=== PATIENT | male | born 1955 | race Asian ===

== ENCOUNTER 2024-02-15 17:59 | Inpatient (IN) | payer MEDICARE, OTHER ==
[~2024-02-15] VITALS: Ht 172.7 cm; Wt 63.5 kg
[2024-02-15 19:32] LABS: HEMATOCRIT 27.1 % (36.7-47.1); RED CELL DISTRIBUTION WIDTH 18.3 % (12.1-16.2)
[2024-02-15 19:36] LABS: CALCIUM 8.8 mg/dL (8.5-10.1); CREATININE 1.2 mg/dL (0.6-1.3)
[2024-02-15 19:48] LABS: BASOPHILS # (AUTO) 0.1 K/UL (0.0-0.2); BASOPHILS % (AUTO) 1.3 % (0.0-2.0); EOSINOPHILS # (AUTO) 0.1 K/uL (0.0-0.7); EOSINOPHILS % (AUTO) 0.8 % (0.0-7.0); HEMOGLOBIN 8.4 g/dL (12.5-16.3); LYMPHOCYTES # (AUTO) 2.7 K/uL (0.8-4.8); LYMPHOCYTES % (AUTO) 25.1 % (20.5-51.5); MEAN CORPUSCULAR HEMOGLOBIN 20.5 uug (23.8-33.4); MEAN CORPUSCULAR HGB CONC 31 g/dL (32.5-36.3); MEAN CORPUSCULAR VOLUME 66.2 fL (73.0-96.2); MONOCYTES # (AUTO) 0.6 K/uL (0.1-1.30); MONOCYTES % (AUTO) 5.9 % (0.0-11.0); NEUTROPHILS # (AUTO) 7.1 K/uL (1.8-8.9); NEUTROPHILS % (AUTO) 66.9 % (38.5-71.5); PLATELET COUNT (AUTO) 356 K/uL (152-348); RED BLOOD CELL COUNT(AUTO) 4.09 MIL/uL (4.06-5.63); WHITE BLOOD COUNT (AUTO) 10.6 K/uL (3.6-10.2)
[2024-02-15 19:50] LABS: DIFFERENTIAL COMMENT 1
[2024-02-15 20:02] LABS: ALBUMIN 3.4 g/dL (3.4-5.0); BILIRUBIN,TOTAL 0.3 mg/dL (0.2-1.0)
[2024-02-15 20:53] LABS: ANISOCYTOSIS 2+; LYMPHOCYTES % (MANUAL) 7 % (20-40); MONOCYTES % (MANUAL) 4 % (2-10); NEUTROPHILS % (MANUAL) 89 % (42-75); PLATELET ESTIMATE ADEQUATE
[2024-02-15 20:54] LABS: HYPOCHROMASIA 2+
[2024-02-15 22:45] VITALS: BP 151/90; TEMP 98.2; O2SAT 99
[2024-02-15] MEDS ORDERED: ONDANSETRON 4 MG/2 ML VIAL IV PRN (23:15)
[2024-02-15] MEDS ORDERED: ACETAMINOPHEN 325 MG TABLET PO PRN (23:15)
[2024-02-15] MEDS ORDERED: REMEDY ESSENTIAL ZINC PASTE 113 GM TP PRN (23:15)
[2024-02-15] MEDS ORDERED: TEMAZEPAM 15 MG CAPSULE PO PRN (23:15)
[2024-02-15] MEDS: IV NS 1000 ML 1,000 ML IV PRN (23:50)
[2024-02-16 00:31] VITALS: BP 158/90; TEMP 98.9; O2SAT 99
[2024-02-16 04:00] VITALS: BP 151/81; TEMP 98.2; O2SAT 99
[2024-02-16] MEDS: PANTOPRAZOLE SODIUM 40 MG TABLET.DR PO SCH (06:12)
[2024-02-16 06:46] LABS: HEMATOCRIT 25.8 % (36.7-47.1); HEMOGLOBIN 8.1 g/dL (12.5-16.3); MEAN CORPUSCULAR HEMOGLOBIN 20.9 uug (23.8-33.4); MEAN CORPUSCULAR HGB CONC 31 g/dL (32.5-36.3); MEAN CORPUSCULAR VOLUME 66.4 fL (73.0-96.2); PLATELET COUNT (AUTO) 348 K/uL (152-348); RED BLOOD CELL COUNT(AUTO) 3.89 MIL/uL (4.06-5.63); RED CELL DISTRIBUTION WIDTH 18.1 % (12.1-16.2); WHITE BLOOD COUNT (AUTO) 8.8 K/uL (3.6-10.2)
[2024-02-16 07:00] LABS: CALCIUM 8.6 mg/dL (8.5-10.1); MAGNESIUM 1.9 mg/dL (1.8-2.4); PHOSPHOROUS 2.8 mg/dL (2.5-4.9); POTASSIUM 4.3 mmol/L (3.5-5.1)
[2024-02-16 07:01] LABS: DIFFERENTIAL COMMENT 1
[2024-02-16 07:12] LABS: THYROID STIMULATING HORMONE 0.932 mIU/mL (0.358-3.740)
[2024-02-16 07:32] VITALS: BP 155/88; TEMP 98.2; O2SAT 99
[2024-02-16] MEDS: HYDROCODONE/APAP 5-325MG TABLET PO PRN (09:27)
[2024-02-16] MEDS: MAGNESIUM HYDROXIDE 30 ML LIQUID UDC PO PRN (10:11)
[2024-02-16 10:58] VITALS: BP 171/58; TEMP 98.2; O2SAT 96
[2024-02-16 11:52] LABS: *BILIRUBIN,URIN NEGATIVE (NEGATIVE); *BLOOD, URINE NEGATIVE (NEGATIVE); *CLARITY,URINE CLEAR (CLEAR); *COLOR,URINE YELLOW (YELLOW); *KETONES,URINE 2+ (NEGATIVE); *PROTEIN,URINE TRACE (NEGATIVE); *UROBILINOGEN,URINE 0.2 E.U./dl (NORMAL); LEUKOCYTE ESTERASE ,URINE NEGATIVE (NEGATIVE); NITRITE, URINE NEGATIVE (NEGATIVE); PH,URINE 5.5 (5.0-8.0); UGLUCOSE NEGATIVE (NEGATIVE)
[2024-02-16 13:07] LABS: BASOPHILS % (AUTO) 1.4 % (0.0-2.0); LYMPHOCYTES # (AUTO) 12.5 K/uL (0.8-4.8); MONOCYTES # (AUTO) 0.9 K/uL (0.1-1.30); NEUTROPHILS # (AUTO) 6.4 K/uL (1.8-8.9)
[2024-02-16 13:08] LABS: BASOPHILS # (AUTO) 0.1 K/UL (0.0-0.2)
[2024-02-16 13:09] LABS: ANISOCYTOSIS 2+; BAND % (MANUAL) 2 % (0-10); HYPOCHROMASIA 2+; LYMPHOCYTES % (MANUAL) 18 % (20-40); MONOCYTES % (MANUAL) 6 % (2-10); NEUTROPHILS % (MANUAL) 72 % (42-75); PLATELET ESTIMATE ADEQUATE; REACTIVE LYMPHOCYTES 2 % (0-0)
[2024-02-16 13:16] LABS: NEUTROPHILS % (AUTO) 74.1 % (38.5-71.5)
[2024-02-16 13:17] LABS: LYMPHOCYTES % (AUTO) 12.5 % (20.5-51.5)
[2024-02-16 13:53] LABS: BACTERIA,URINE FEW /HPF (NONE SEEN); WBC,URINE 0-3 /HPF (0-3)
[2024-02-16 13:54] LABS: SQUAMOUS EPITHELIAL CELL,UR FEW /HPF (NONE SEEN); URIC ACID CRYSTALS,URINE PRESENT /HPF (NONE SEEN)
[2024-02-16 15:02] VITALS: BP 157/83; TEMP 98.4; O2SAT 96
[2024-02-16] MEDS ORDERED: GABA300C PO (15:49)
[2024-02-16] MEDS ORDERED: ERGO50CA PO (15:49)
[2024-02-16] MEDS ORDERED: ATOR10TA PO (15:49)
[2024-02-16] MEDS ORDERED: LINA5TAB PO (15:49)
[2024-02-16] MEDS ORDERED: DOCU-141 PO (15:49)
[2024-02-16] MEDS ORDERED: METO-357 PO (15:49)
[2024-02-16] MEDS ORDERED: LOSA100T31 PO (15:49)
[2024-02-16] MEDS ORDERED: HOME MED MISCELLANEOUS XX SCH (16:00)
[2024-02-16] MEDS: DOCUSATE SODIUM 100 MG CAPSULE PO PRN (16:24)
[2024-02-16] MEDS: GABAPENTIN 300 MG CAPSULE PO SCH (16:24)
[2024-02-16] MEDS: METOPROLOL SUCCINATE XL 50 MG TAB.SR.24H PO SCH (16:24)
[2024-02-16] MEDS: CHOLECALCIFEROL 1,000 UNIT TABLET PO SCH (16:24)
[2024-02-16] MEDS: LINAGLIPTIN 5 MG TABLET PO SCH (16:24)
[2024-02-16 19:30] VITALS: BP 163/103; TEMP 97.9; O2SAT 98
[2024-02-16] MEDS: ATORVASTATIN 10 MG TABLET PO SCH (21:01)
[2024-02-16] MEDS: CLONIDINE HCL 0.1 MG TABLET PO PRN (21:01)
[2024-02-17] VITALS: BP 155/83; TEMP 97.1; O2SAT 100
[2024-02-17 04:00] VITALS: BP 123/78; TEMP 97.1; O2SAT 97
[2024-02-17 07:49] VITALS: BP 143/72; TEMP 97.6; O2SAT 100
[2024-02-17] MEDS: LOSARTAN POTASSIUM 50 MG TABLET PO SCH (08:51)
[2024-02-17 11:19] VITALS: BP 130/77; TEMP 98.4; O2SAT 100
[2024-02-17 15:31] VITALS: BP 126/58; TEMP 97.6; O2SAT 100
[2024-02-17 19:30] VITALS: BP 135/69; TEMP 98; O2SAT 98
[2024-02-18 04:34] VITALS: BP 147/79; TEMP 98.7; O2SAT 99
[2024-02-18 06:00] VITALS: BP 134/74; TEMP 98.7; O2SAT 99
[2024-02-18] MEDS: DOCUSATE SODIUM 100 MG CAPSULE PO SCH (10:49)
[2024-02-18 11:09] VITALS: BP 158/87; TEMP 98.1; O2SAT 96
[2024-02-18 15:17] VITALS: BP 136/74; TEMP 98.3; O2SAT 97
== END 2024-02-18 16:15 | DRG 641 ==
LOC: ER 17:59 → TELE3 22:35 → MEDSURG3 02-17 10:10
PROVIDERS: ADMIT Nurse Practitioner Acute Care; ATTEND Nurse Practitioner Acute Care
DX: E86.0 Dehydration (principal); R65.10 Systemic inflammatory response syndrome (SIRS) of non-infectious origin without acute organ dysfunction; M54.17 Radiculopathy, lumbosacral region; R26.89 Other abnormalities of gait and mobility; N18.9 Chronic kidney disease, unspecified; K59.00 Constipation, unspecified; E78.5 Hyperlipidemia, unspecified; E11.42 Type 2 diabetes mellitus with diabetic polyneuropathy; E11.22 Type 2 diabetes mellitus with diabetic chronic kidney disease; G89.29 Other chronic pain; M54.42 Lumbago with sciatica, left side; M54.41 Lumbago with sciatica, right side; Z74.01 Bed confinement status; D63.8 Anemia in other chronic diseases classified elsewhere
CPT/HCPCS: 36415; 70030-TC; 70450; 71045; 74018; 83735; 84100; 84443; 84484; 85025; 93307; 93880; A4663; G0378; J7040

== ENCOUNTER 2024-02-18 17:09 | Inpatient (IN) | payer MEDICARE, OTHER ==
[~2024-02-18] VITALS: Ht 172.7 cm; Wt 63.5 kg
[~2024-02-18 17:09] MED LIST: ATOR10TA PO; DOCU-141 PO; ERGO50CA PO; GABA300C PO; LINA5TAB PO; LOSA100T31 PO; METO-357 PO
[2024-02-18 17:30] VITALS: BP 156/87; TEMP 97.9; O2SAT 98
[2024-02-18] MEDS ORDERED: DOCUSATE SODIUM 100 MG CAPSULE PO PRN ×2 (19:30→21:00)
[2024-02-18] MEDS ORDERED: REMEDY ESSENTIAL ZINC PASTE 113 GM TOP PRN (19:30)
[2024-02-18] MEDS ORDERED: TEMAZEPAM 15 MG CAPSULE PO PRN (19:30)
[2024-02-18] MEDS ORDERED: CLONIDINE HCL 0.1 MG TABLET PO PRN (19:30)
[2024-02-18] MEDS ORDERED: ACETAMINOPHEN 325 MG TABLET PO PRN (19:30)
[2024-02-18 20:00] VITALS: BP 154/77; TEMP 97.7; O2SAT 96
[2024-02-18] MEDS: ATORVASTATIN 10 MG TABLET PO SCH ×2 (21:00→21:10)
[2024-02-18] MEDS ORDERED: DEXTROSE 50% 50 ML DISP.SYRIN IV PRN (21:00)
[2024-02-18] MEDS ORDERED: HOME MED MISCELLANEOUS XX SCH (21:00)
[2024-02-18] MEDS: DOCUSATE SODIUM 100 MG/10 ML LIQUID UDC PO SCH (21:09)
[2024-02-18] MEDS: BLOOD SUGAR DIAGNOSTIC 1 EACH STRIP VI SCH (21:13)
[2024-02-19 06:00] VITALS: BP 149/77; TEMP 98.1; O2SAT 98
[2024-02-19] MEDS: PANTOPRAZOLE SODIUM 40 MG TABLET.DR PO SCH (06:14)
[2024-02-19] MEDS ORDERED: METOPROLOL SUCCINATE XL 50 MG TAB.SR.24H PO SCH (09:00)
[2024-02-19] MEDS ORDERED: LOSARTAN POTASSIUM 50 MG TABLET PO SCH (09:00)
[2024-02-19] MEDS ORDERED: GABAPENTIN 300 MG CAPSULE PO SCH (09:00)
[2024-02-19] MEDS ORDERED: LINAGLIPTIN 5 MG TABLET PO SCH (09:00)
[2024-02-19] MEDS: CHOLECALCIFEROL 1,000 UNIT TABLET PO SCH (09:40)
[2024-02-19] MEDS: GABAPENTIN 300 MG CAPSULE PO SCH (09:40)
[2024-02-19] MEDS: LOSARTAN POTASSIUM 50 MG TABLET PO SCH (09:41)
[2024-02-19] MEDS: LINAGLIPTIN 5 MG TABLET PO SCH (09:42)
[2024-02-19] MEDS: METOPROLOL SUCCINATE XL 50 MG TAB.SR.24H PO SCH (09:42)
[2024-02-19] MEDS: HYDROCODONE/APAP 5-325MG TABLET PO PRN (11:19)
[2024-02-19] MEDS: DOCUSATE SODIUM 100 MG CAPSULE PO SCH (13:33)
[2024-02-19 16:06] VITALS: BP 137/79; TEMP 98.3; O2SAT 97
[2024-02-19] MEDS: INSULIN REGULAR, HUMAN 1000 UNIT/10 ML VIAL SQ PRN (21:06)
[2024-02-19 21:13] VITALS: BP 137/72; TEMP 98.2; O2SAT 91
[2024-02-20 15:03] VITALS: BP 115/68; TEMP 98.2; O2SAT 98
[2024-02-20 20:19] VITALS: BP 128/73; TEMP 98.1; O2SAT 98
[2024-02-21 06:14] VITALS: BP 134/71; TEMP 98; O2SAT 96
[2024-02-21] MEDS: GLUCERNA SHAKE 237 ML CAN PO SCH (08:26)
[2024-02-21 15:06] VITALS: TEMP 98.6
[2024-02-21 19:00] VITALS: BP 111/67; TEMP 98.6; O2SAT 97
[2024-02-22 08:40] VITALS: BP 155/85; TEMP 98.5; O2SAT 96
[2024-02-22 14:46] VITALS: BP 115/62; TEMP 98; O2SAT 20
[2024-02-22 20:51] VITALS: BP 137/71; TEMP 98; O2SAT 97
[2024-02-23 06:32] VITALS: BP 110/67; TEMP 98.7; O2SAT 97
[2024-02-23 07:26] LABS: BASOPHILS # (AUTO) 0.1 K/UL (0.0-0.2); EOSINOPHILS # (AUTO) 0.1 K/uL (0.0-0.7); EOSINOPHILS % (AUTO) 1.5 % (0.0-7.0); HEMATOCRIT 23.3 % (36.7-47.1); LYMPHOCYTES # (AUTO) 0.7 K/uL (0.8-4.8); LYMPHOCYTES % (AUTO) 7.9 % (20.5-51.5); MEAN CORPUSCULAR HEMOGLOBIN 20.4 uug (23.8-33.4); MEAN CORPUSCULAR HGB CONC 32 g/dL (32.5-36.3); MEAN CORPUSCULAR VOLUME 64.4 fL (73.0-96.2); MONOCYTES # (AUTO) 0.9 K/uL (0.1-1.30); MONOCYTES % (AUTO) 10.7 % (0.0-11.0); NEUTROPHILS # (AUTO) 6.7 K/uL (1.8-8.9); NEUTROPHILS % (AUTO) 78.9 % (38.5-71.5); PLATELET COUNT (AUTO) 308 K/uL (152-348); RED BLOOD CELL COUNT(AUTO) 3.61 MIL/uL (4.06-5.63); RED CELL DISTRIBUTION WIDTH 18.4 % (12.1-16.2); WHITE BLOOD COUNT (AUTO) 8.4 K/uL (3.6-10.2)
[2024-02-23 07:31] LABS: DIFFERENTIAL COMMENT 1; HEMOGLOBIN 7.4 g/dL (12.5-16.3)
[2024-02-23 07:57] LABS: CALCIUM 8.3 mg/dL (8.5-10.1); CREATININE 1.2 mg/dL (0.6-1.3); MAGNESIUM 2.2 mg/dL (1.8-2.4); PHOSPHOROUS 3.3 mg/dL (2.5-4.9); POTASSIUM 4.4 mmol/L (3.5-5.1)
[2024-02-23 16:01] VITALS: BP 123/61; TEMP 98.1; O2SAT 98
[2024-02-23 20:07] VITALS: BP 115/61; TEMP 98.9; O2SAT 98
[2024-02-24 06:42] VITALS: BP 127/69; TEMP 98.4; O2SAT 97
[2024-02-24 09:29] LABS: CALCIUM 8.6 mg/dL (8.5-10.1); CREATININE 1.3 mg/dL (0.6-1.3); MAGNESIUM 2.2 mg/dL (1.8-2.4); PHOSPHOROUS 3.5 mg/dL (2.5-4.9); POTASSIUM 4.9 mmol/L (3.5-5.1)
[2024-02-24 09:40] LABS: BASOPHILS # (AUTO) 0.2 K/UL (0.0-0.2); BASOPHILS % (AUTO) 1.5 % (0.0-2.0); DIFFERENTIAL COMMENT 0; EOSINOPHILS # (AUTO) 0.2 K/uL (0.0-0.7); EOSINOPHILS % (AUTO) 1.8 % (0.0-7.0); HEMATOCRIT 25.9 % (36.7-47.1); HEMOGLOBIN 8.1 g/dL (12.5-16.3); LYMPHOCYTES # (AUTO) 0.8 K/uL (0.8-4.8); LYMPHOCYTES % (AUTO) 7.1 % (20.5-51.5); MEAN CORPUSCULAR HEMOGLOBIN 20.1 uug (23.8-33.4); MEAN CORPUSCULAR HGB CONC 31 g/dL (32.5-36.3); MEAN CORPUSCULAR VOLUME 64.2 fL (73.0-96.2); MONOCYTES # (AUTO) 2.5 K/uL (0.1-1.30); MONOCYTES % (AUTO) 21.9 % (0.0-11.0); NEUTROPHILS # (AUTO) 7.6 K/uL (1.8-8.9); NEUTROPHILS % (AUTO) 67.7 % (38.5-71.5); PLATELET COUNT (AUTO) 366 K/uL (152-348); RED BLOOD CELL COUNT(AUTO) 4.03 MIL/uL (4.06-5.63); RED CELL DISTRIBUTION WIDTH 18.7 % (12.1-16.2); WHITE BLOOD COUNT (AUTO) 11.2 K/uL (3.6-10.2)
[2024-02-24 16:07] VITALS: BP 133/67; TEMP 98; O2SAT 98
[2024-02-24 20:52] VITALS: BP 133/67; TEMP 98.8; O2SAT 97
[2024-02-24 21:30] LABS: EOSINOPHILS % (MANUAL) 2 % (0-8); LYMPHOCYTES % (MANUAL) 17 % (20-40); MONOCYTES % (MANUAL) 4 % (2-10); NEUTROPHILS % (MANUAL) 77 % (42-75); PLATELET ESTIMATE ADEQUATE
[2024-02-24 21:31] LABS: ANISOCYTOSIS 2+; HYPOCHROMASIA 2+
[2024-02-25 05:42] VITALS: BP 152/92; TEMP 98.7; O2SAT 98
[2024-02-25 16:01] VITALS: BP 121/67; TEMP 98.1; O2SAT 96
[2024-02-25 19:59] VITALS: BP 114/62; TEMP 98.9; O2SAT 98
[2024-02-26 06:10] VITALS: BP 119/69; TEMP 98.8; O2SAT 97
[2024-02-26 20:55] VITALS: BP 128/69; TEMP 99.7; O2SAT 97
[2024-02-27 07:19] VITALS: BP 128/78; TEMP 98.7; O2SAT 96
[2024-02-27 16:01] VITALS: BP 107/45; TEMP 97.6; O2SAT 95
[2024-02-27 19:08] LABS: *BILIRUBIN,URIN NEGATIVE (NEGATIVE); *BLOOD, URINE NEGATIVE (NEGATIVE); *CLARITY,URINE CLEAR (CLEAR); *COLOR,URINE YELLOW (YELLOW); *KETONES,URINE NEGATIVE (NEGATIVE); *PROTEIN,URINE NEGATIVE (NEGATIVE); *UROBILINOGEN,URINE 0.2 E.U./dl (NORMAL); LEUKOCYTE ESTERASE ,URINE NEGATIVE (NEGATIVE); NITRITE, URINE NEGATIVE (NEGATIVE); UGLUCOSE NEGATIVE (NEGATIVE)
[2024-02-27 20:22] VITALS: BP 123/72; TEMP 98.6; O2SAT 97
[2024-02-28 06:12] VITALS: BP 128/73; TEMP 98.1; O2SAT 97
[2024-02-28 07:31] LABS: BASOPHILS % (AUTO) 0.5 % (0.0-2.0); EOSINOPHILS # (AUTO) 0.1 K/uL (0.0-0.7); EOSINOPHILS % (AUTO) 0.6 % (0.0-7.0); HEMATOCRIT 24.4 % (36.7-47.1); HEMOGLOBIN 7.6 g/dL (12.5-16.3); LYMPHOCYTES # (AUTO) 5.7 K/uL (0.8-4.8); MEAN CORPUSCULAR HEMOGLOBIN 20.2 uug (23.8-33.4); MEAN CORPUSCULAR HGB CONC 31 g/dL (32.5-36.3); MEAN CORPUSCULAR VOLUME 64.4 fL (73.0-96.2); MONOCYTES # (AUTO) 0.7 K/uL (0.1-1.30); NEUTROPHILS # (AUTO) 2.3 K/uL (1.8-8.9); NEUTROPHILS % (AUTO) 25.9 % (38.5-71.5); PLATELET COUNT (AUTO) 343 K/uL (152-348); RED BLOOD CELL COUNT(AUTO) 3.78 MIL/uL (4.06-5.63); RED CELL DISTRIBUTION WIDTH 18.5 % (12.1-16.2); WHITE BLOOD COUNT (AUTO) 8.8 K/uL (3.6-10.2)
[2024-02-28 07:39] LABS: CALCIUM 8.4 mg/dL (8.5-10.1); CREATININE 1.3 mg/dL (0.6-1.3); POTASSIUM 5.1 mmol/L (3.5-5.1)
[2024-02-28 07:46] LABS: DIFFERENTIAL COMMENT 1
[2024-02-28 08:00] VITALS: BP 142/77; O2SAT 98
[2024-02-28 12:47] LABS: EOSINOPHILS % (MANUAL) 3 % (0-8); LYMPHOCYTES % (MANUAL) 54 % (20-40); MONOCYTES % (MANUAL) 10 % (2-10); NEUTROPHILS % (MANUAL) 33 % (42-75)
[2024-02-28 12:48] LABS: ANISOCYTOSIS 1+; HYPOCHROMASIA 1+; PLATELET ESTIMATE ADEQUATE
[2024-02-28 16:00] VITALS: BP 106/56; TEMP 98.2; O2SAT 99
[2024-02-28] MEDS: MAGNESIUM HYDROXIDE 30 ML LIQUID UDC PO PRN (17:28)
[2024-02-28 21:12] VITALS: BP 113/48; TEMP 98.4; O2SAT 98
[2024-02-29 06:38] VITALS: BP 108/69; TEMP 98.2; O2SAT 98
[2024-02-29 19:57] VITALS: BP 126/67; TEMP 98.2; O2SAT 99
[2024-03-01 06:12] VITALS: BP 107/64; TEMP 98; O2SAT 97
[2024-03-01 15:27] VITALS: BP 116/62; TEMP 98.4; O2SAT 98
[2024-03-01 19:50] VITALS: BP 120/66; TEMP 98.2; O2SAT 97
[2024-03-02 00:14] VITALS: BP 120/66; TEMP 98.2; O2SAT 97
[2024-03-02 06:36] VITALS: BP 116/64; TEMP 98.1; O2SAT 96
[2024-03-02 07:42] VITALS: BP 124/75; TEMP 98.4; O2SAT 97
[2024-03-02 15:18] VITALS: BP 96/54; TEMP 98.2; O2SAT 96
[2024-03-02 20:00] VITALS: BP 113/65; TEMP 97.8; O2SAT 97
[2024-03-03 06:00] VITALS: BP 134/68; TEMP 97.8; O2SAT 98
[2024-03-03 07:48] VITALS: BP 130/70; TEMP 98; O2SAT 98
[2024-03-03 12:11] LABS: BASOPHILS % (AUTO) 0.5 % (0.0-2.0); EOSINOPHILS # (AUTO) 0.1 K/uL (0.0-0.7); EOSINOPHILS % (AUTO) 0.9 % (0.0-7.0); HEMATOCRIT 26.8 % (36.7-47.1); HEMOGLOBIN 8.2 g/dL (12.5-16.3); LYMPHOCYTES # (AUTO) 1.3 K/uL (0.8-4.8); LYMPHOCYTES % (AUTO) 16.7 % (20.5-51.5); MEAN CORPUSCULAR HEMOGLOBIN 19.5 uug (23.8-33.4); MEAN CORPUSCULAR HGB CONC 31 g/dL (32.5-36.3); MEAN CORPUSCULAR VOLUME 63.8 fL (73.0-96.2); MONOCYTES # (AUTO) 0.6 K/uL (0.1-1.30); MONOCYTES % (AUTO) 7.5 % (0.0-11.0); NEUTROPHILS % (AUTO) 74.4 % (38.5-71.5); PLATELET COUNT (AUTO) 449 K/uL (152-348); RED BLOOD CELL COUNT(AUTO) 4.21 MIL/uL (4.06-5.63); RED CELL DISTRIBUTION WIDTH 18.5 % (12.1-16.2)
[2024-03-03 12:14] LABS: DIFFERENTIAL COMMENT 1
[2024-03-03 15:20] VITALS: BP 97/53; TEMP 98.4; O2SAT 98
[2024-03-03 19:48] LABS: ANISOCYTOSIS 1+; EOSINOPHILS % (MANUAL) 1 % (0-8); HYPOCHROMASIA 1+; LYMPHOCYTES % (MANUAL) 14 % (20-40); MONOCYTES % (MANUAL) 10 % (2-10); NEUTROPHILS % (MANUAL) 75 % (42-75); PLATELET ESTIMATE ADEQUATE
[2024-03-03 20:00] VITALS: BP 130/64; TEMP 98; O2SAT 98
[2024-03-03 20:37] LABS: TARGET CELLS 1+
[2024-03-04 06:00] VITALS: BP 121/63; TEMP 98.1; O2SAT 99
[2024-03-04 08:00] VITALS: BP 125/63; TEMP 98.2; O2SAT 97
[2024-03-04 15:36] VITALS: BP 90/57; TEMP 98.1; O2SAT 97
[2024-03-04 19:23] VITALS: BP 114/63; TEMP 97.7; O2SAT 95
[2024-03-05 06:30] VITALS: BP 114/65; TEMP 97.8; O2SAT 95
[2024-03-05 08:00] VITALS: BP 122/69; TEMP 98; O2SAT 96
[2024-03-05 10:10] VITALS: BP 143/72
== END 2024-03-05 15:00 | disposition home health service (06) | DRG 948 ==
PROVIDERS: ADMIT Physical Medicine & Rehabilitation; ATTEND Physical Medicine & Rehabilitation Pain Medicine
DX: R53.1 Weakness (principal); R55 Syncope and collapse; E11.40 Type 2 diabetes mellitus with diabetic neuropathy, unspecified; E78.5 Hyperlipidemia, unspecified; E86.0 Dehydration; I10 Essential (primary) hypertension; R26.89 Other abnormalities of gait and mobility; D63.1 Anemia in chronic kidney disease; E11.22 Type 2 diabetes mellitus with diabetic chronic kidney disease; N18.9 Chronic kidney disease, unspecified; Z99.3 Dependence on wheelchair; M54.17 Radiculopathy, lumbosacral region; I12.9 Hypertensive chronic kidney disease with stage 1 through stage 4 chronic kidney disease, or unspecified chronic kidney disease; G89.29 Other chronic pain; I95.9 Hypotension, unspecified
CPT/HCPCS: 36415; 70030-TC; 83735; 84100; 85025; 93005; 97535-GO-CO; J1815